=== PATIENT | male | born 1980 | race Caucasian/White ===

== ENCOUNTER 2020-10-27 16:47 | Emergency (ER) | payer OTHER ==
[~2020-10-27 16:47] MED LIST: DILAUDID2 MG PO; FLOMAX0.4 M1 PO; LORTAB 10 PO; PERCOCET 5/325M1 TAB PO; TORADOL PO
[2020-10-27] MEDS ORDERED: STROMECTOL3 MG PO (18:34)
[2020-10-27 18:41] VITALS: BP 145/95
== END 2020-10-27 18:41 | disposition home or self-care (01) | DRG 179 ==
LOC: ED 16:47
DX: U07.1 COVID-19 (principal); E11.9 Type 2 diabetes mellitus without complications

== ENCOUNTER 2022-04-13 16:45 | Emergency (ER) | payer OTHER ==
[~2022-04-13] VITALS: Ht 182.9 cm; Wt 101.4 kg
[2022-04-13] VITALS (10 sets, daily range): BP systolic 134–152; BP diastolic 83–107
[~2022-04-13 16:45] MED LIST changes: +STROMECTOL3 MG PO
[2022-04-13] MEDS ORDERED: FENOFIBRATE160 MG PO (17:22)
[2022-04-13] MEDS ORDERED: BASAGLAR TEM100 UNIT (17:24)
[2022-04-13] MEDS ORDERED: PAXLOVID PO (20:57)
== END 2022-04-13 21:20 | disposition home or self-care (01) | DRG 179 ==
LOC: ED 16:45
DX: U07.1 COVID-19 (principal); R09.81 Nasal congestion; R51.9 Headache, unspecified; J02.9 Acute pharyngitis, unspecified; R52 Pain, unspecified; E11.9 Type 2 diabetes mellitus without complications; Z79.4 Long term (current) use of insulin